=== PATIENT | male | born 1950 ===

== ENCOUNTER 2018-07-14 12:43 | Emergency (ER) | payer OTHER ==
[2018-07-14 12:57] VITALS: RESP 20
[2018-07-14] MEDS ORDERED: Naproxen 550 mg Tab PO STA (13:37)
[2018-07-14] MEDS ORDERED: Lidocaine 5% Patch TD STA (13:37)
[2018-07-14] MEDS ORDERED: Lidocaine 5% Patch TD ONE (13:44)
[2018-07-14] MEDS ORDERED: Naproxen 550 mg Tab PO ONE (13:44)
--- NOTE | 2018-07-14 13:45 | C.PDOC ---
History Of Present Illness 68-year-old male, presents to the emergency department with complaints of 2-3 month history of lower back pain described as left sided and radiating down to left hip. Pain is worsened when he moves and walks. Denies numbness/weakness, fall/injury, rash or any other associated symptoms. no other complaints at this time Time Seen by Provider: 07/14/18 13:02 Chief Complaint (Nursing): Back Pain History Per: Patient History/Exam Limitations: no limitations Past Medical History Reviewed: Historical Data, Nursing Documentation, Vital Signs Vital Signs: Last Vital Signs Temp 97.5 F L 07/14/18 12:46 Pulse 74 07/14/18 12:46 Resp 20 07/14/18 12:46 BP 153/89 H 07/14/18 12:46 Pulse Ox 99 07/14/18 12:46 Family History: States: No Known Family Hx - Social History Hx Alcohol Use: Yes Hx Substance Use: No - Immunization History Hx Tetanus Toxoid Vaccination: No Hx Influenza Vaccination: No Hx Pneumococcal Vaccination: No Review Of Systems Musculoskeletal: Positive for: Back Pain Neurological: Negative for: Weakness, Numbness Physical Exam - Physical Exam Appears: Non-toxic, No Acute Distress Skin: Warm, Dry, No Rash Head: Atraumatic, Normacephalic Eye(s): bilateral: Normal Inspection Nose: Normal Oral Mucosa: Moist Lips: Normal Appearing Neck: Normal ROM, Supple Chest: Symmetrical, No Tenderness Cardiovascular: Rhythm Regular, No Friction Rub, No Murmur Respiratory: Normal Breath Sounds, No Accessory Muscle Use, No Rhonchi, No Stridor, No Wheezing Back: No Vertebral Tenderness, Paraspinal Tenderness (mild paralumbar tendernes) Extremity: Normal ROM, No Deformity Neurological/Psych: Oriented x3, Normal Speech, Normal Motor Gait: Steady ED Course And Treatment O2 Sat by Pulse Oximetry: 99 Pulse Ox Interpretation: Normal (RA) Disposition - Disposition Referrals: Tung Moralez MD [Non-Staff] - Disposition: HOME/ ROUTINE Disposition Time: 14:39 Condition: STABLE Additional Instructions: Follow up with the medical doctor within 1-2 days. Return if worsened. Prescriptions: Cyclobenzaprine [Flexeril] 5 mg PO TID #21 tab Lidocaine 5% [Lidoderm] 1 each TP DAILY #10 patch Naproxen 375 mg PO BID #20 tablet Instructions: Low Back Pain in Adults Forms: [facility] (Cypriot) Print Language: SERBIAN - Clinical Impression Clinical Impression: Low back pain - Scribe Statement The provider has reviewed the documentation as recorded by the Scribe (Nidia Garza) All medical record entries made by the Scribe were at my direction and personally dictated by me. I have reviewed the chart and agree that the record accurately reflects my personal performance of the history, physical exam, medical decision making, and the department course for this patient. I have also personally directed, reviewed, and agree with the discharge instructions and disposition.
--- NOTE | 2018-07-14 14:01 | RAD ---
Date of service: 07/14/2018 PROCEDURE: Radiographs of the Lumbar Spine. HISTORY: low back pain, several months COMPARISON: No prior. FINDINGS: BONES: There is mild levoscoliosis in the lumbar spine. There is normal alignment of the lumbar vertebral bodies. There is normal lumbar lordosis. There is no acute fracture, spondylolysis or spondylolisthesis. Bone mineralization is normal. DISC SPACES: There are multilevel degenerative changes with anterior osteophytes, reduced disc heights, subarticular endplate marrow changes and multilevel facet arthropathy, worse at L5-S1. OTHER FINDINGS: No pathologic soft tissue calcifications. Both sacroiliac joints are normal. IMPRESSION: No acute fracture or spondylolysis. Advanced multilevel degenerative disc disease, worse at L5-S1.
[2018-07-14 14:37] VITALS: BP 126/84; PULSE 86; TEMP 98.8
[2018-07-14 14:43] VITALS: O2SAT 99
== END 2018-07-14 14:53 | disposition home or self-care (01) ==
LOC: C.ER 12:43
DX: M54.5 Low back pain (principal)